=== PATIENT | female | born 1975 | race Caucasian/White ===

== ENCOUNTER → 2017-04-11 | Outpatient (CLI) | payer BC ==
[2017-04-19 10:14] LABS: CRYPTOSPORIDIUM AG TC 37213 NOT DETECTED (NOT DETECTED); O&P SOURCE OTHER-STOOL
== END | disposition home or self-care (01) ==
LOC: C.LABSPEC 07:39
PROVIDERS: ATTEND Family Medicine
DX: R19.7 Diarrhea, unspecified (principal)

== ENCOUNTER → 2017-10-30 | Outpatient (CLI) | payer BC ==
--- NOTE | 2017-10-30 17:20 | DIAGNOSTIC IMAGING REPORT ---
KUB CLINICAL HISTORY: BODY MASS pain COMPARISON STUDY: No previous studies for comparison. FINDINGS: Potential mid abdominal soft tissue mass versus potential hepatomegaly. Colon appears to be slightly displaced left lateral position. No abnormal calcifications. Nonobstructive bowel pattern. IMPRESSION: Possible upper mid abdominal soft tissue mass versus hepatomegaly/gastric distention. CT examination of the abdomen and pelvis is suggested as follow-up. The above report was generated using voice recognition software. It may contain grammatical, syntax or spelling errors. Electronically signed by: Bismark Delaney M.D. 10/30/2017 5:18 PM Dictated Date/Time: 10/30/2017 5:16 PM
== END | disposition home or self-care (01) ==
LOC: C.RADBC 16:30
PROVIDERS: ATTEND Family Medicine
DX: Z68.23 Body mass index [BMI] 23.0-23.9, adult (principal)

== ENCOUNTER → 2017-10-31 | Outpatient (CLI) | payer BC ==
[~2017-10-31] MED LIST: OPTIRAY 320 IV PRN
--- NOTE | 2017-10-31 18:05 | DIAGNOSTIC IMAGING REPORT ---
CT SCAN OF THE ABDOMEN AND PELVIS WITH IV CONTRAST CLINICAL HISTORY: Generalized abdominal pain. COMPARISON STUDY: KUB dated 10/30/2017. TECHNIQUE: Following the IV administration of 92 cc of Optiray 320, CT scan of the abdomen and pelvis is performed from the lung bases to the proximal femora. Images are reviewed in the axial, sagittal, and coronal planes. IV contrast was administered without complication. A dose lowering technique was utilized adhering to the principles of ALARA. CT DOSE: 284.48 mGy.cm FINDINGS: Lung bases: The heart is normal in size and without pericardial effusion. The lung bases are clear. Liver: The contrast-enhanced liver is normal in size, contour, and attenuation. There is no intrahepatic biliary ductal dilatation. The hepatic veins and portal veins are patent. Gallbladder: Unremarkable. Spleen: Normal in size and attenuation. Pancreas: Unremarkable. Adrenal glands: Unremarkable. Kidneys: The contrast enhanced kidneys are normal in size and without hydronephrosis. The kidneys enhance symmetrically. Abdominal vasculature: The abdominal aorta is normal in course and caliber. Bowel: The small bowel and colon are normal in course and caliber. The appendix is well-visualized and normal. Peritoneum: There is no intraperitoneal free air or abdominal ascites. There is a small fat-containing umbilical hernia. Lymphadenopathy: None. Pelvic viscera: The bladder, uterus, and adnexa are normal as visualized. Small ovarian follicles are incidentally noted. Skeletal structures: A pectus deformity is incidentally noted. No lytic or blastic lesions are seen. IMPRESSION: There are no acute infectious or inflammatory findings in the abdomen or pelvis. Electronically signed by: Ciaran Luis M.D. 10/31/2017 6:04 PM Dictated Date/Time: 10/31/2017 5:58 PM
== END | disposition home or self-care (01) ==
LOC: C.CTS 14:57
PROVIDERS: ATTEND Family Medicine
DX: R10.84 Generalized abdominal pain (principal)